=== PATIENT | female | born 1960 | race Caucasian/White ===

== ENCOUNTER 2017-06-03 09:26 | Emergency (ER) | payer BC ==
[2017-06-03 09:42] VITALS: BP 98/56
--- NOTE | 2017-06-03 10:00 | UC ---
Lower Extremity/Ankle HPI - HPI Summary HPI Summary: Patient presents with complaints of several day foot pain, which became worse yesterday. she states pain of the top of foot that radiates to the sides of the ankle. She states the pain is constant, but worse with walking. she describes it as aching pain. Denies any injury, trauma, or new activity that would explain the pain. - History of Current Complaint Chief Complaint: UCLowerExtremity Stated Complaint: RIGHT FOOT PAIN Time Seen by Provider: 06/03/17 09:28 Hx Obtained From: Patient ?: No Onset/Duration: Gradual Onset, Lasting Days Severity Initially: Moderate Severity Currently: Moderate Aggravating Factor(s): Ambulation Alleviating Factor(s): Rest, Elevation, Ice Able to Bear Weight: Yes - Risk Factors Gout Risk Factors: Negative DVT Risk Factors: Negative Septic Arthritis Risk Factor: Negative - Allergies/Home Medications Allergies/Adverse Reactions: Allergies Allergy/AdvReac Type Severity Reaction Status Date / Time No Known Allergies Allergy Verified 06/03/17 09:42 PMH/Surg Hx/FS Hx/Imm Hx Previously Healthy: Yes - Surgical History Surgical History: Yes Surgery Procedure, Year, and Place: 70% STOMACH REMOVED 03/2015, TONSILLECTOMY, NECK SURGERY A CHILD - Family History Known Family History: Positive: None - Social History Occupation: Employed Full-time Lives: Alone Alcohol Use: Rare Alcohol Amount: 1 GLASS/WEEK Substance Use Type: Marijuana Substance Use Comment - Amount & Last Used: occassional Smoking Status (MU): Never Smoked Tobacco - Immunization History Most Recent Influenza Vaccination: Not UTD Review of Systems Constitutional: Negative Skin: Negative Eyes: Negative ENT: Negative Respiratory: Negative Cardiovascular: Negative Gastrointestinal: Negative Genitourinary: Negative Motor: Negative Neurovascular: Negative Musculoskeletal: Arthralgia, Decreased ROM, Myalgia Neurological: Negative Psychological: Negative All Other Systems Reviewed And Are Negative: Yes Physical Exam Triage Information Reviewed: Yes Appearance: Well-Appearing Vital Signs: Initial Vital Signs Temp 97.0 F 06/03/17 09:32 Pulse 78 06/03/17 09:32 Resp 16 06/03/17 09:32 BP 98/56 06/03/17 09:32 Pulse Ox 99 06/03/17 09:32 Eye Exam: Normal ENT Exam: Normal Dental Exam: Normal Neck exam: Normal Neck: Positive: 1 Respiratory Exam: Normal Cardiovascular Exam: Normal Abdominal Exam: Normal Musculoskeletal: Positive: Other: - foot inspection; no areas of eccymosis, edema, or erythma. Palpation; tenderness to palpation of dorsum of foot. ROM: full dorsiflexion,plantar flexion. Vasc; no edema, PP+. Neuro; no deficits. Neurological Exam: Normal Psychological Exam: Normal Skin Exam: Normal Lower Extremity Course/Dx - Course Course Of Treatment: Patient presents with nontraumatic foot pain. Xrays were negative. Post-op shoe provided. NSAIDS recommended. F/U with orthopedists w/i 2 days. Suspect tendonitis. Dischaged instable condition. - Differential Dx/Diagnosis Differential Diagnosis/HQI/PQRI: Tendonitis Provider Diagnoses: foot pain. tendonitis Discharge - Discharge Plan Condition: Stable Disposition: HOME Patient Education Materials: Tendinitis (ED) Referrals: Wade Scott MD [Primary Care Provider] - Mario Gaines MD [Medical Doctor] -
--- NOTE | 2017-06-03 10:19 | RAD ---
HISTORY: Right foot pain COMPARISONS: None VIEWS: 3, Frontal, lateral, and oblique views of the right foot FINDINGS: BONE DENSITY: Normal. BONES: There is no displaced fracture. JOINTS: There is no arthropathy. ALIGNMENT: There is no dislocation. SOFT TISSUES: Unremarkable. OTHER FINDINGS: None. IMPRESSION: NO ACUTE OSSEOUS INJURY. IF SYMPTOMS PERSIST, RECOMMEND REPEAT IMAGING.
== END 2017-06-03 10:28 | disposition home or self-care (01) ==
LOC: UCEAST 09:26
DX: M79.671 Pain in right foot (principal); M65.871 Other synovitis and tenosynovitis, right ankle and foot
CPT/HCPCS: 99213; G0463

== ENCOUNTER 2017-07-22 07:40 | Emergency (ER) | payer BC ==
[2017-07-22 07:51] VITALS: BP 112/45
[2017-07-22] MEDS ORDERED: Albuterol/Ipratropium NEB.SOL* Albuterol 2.5 MG/Ipratropium 0.5 MG 3 ML INH ONE (08:03)
--- NOTE | 2017-07-22 08:13 | UC ---
Issa Tran Angela, scribed for Ruchi Dillon MD on 07/22/17 at 0803 . General HPI - HPI Summary HPI Summary: This pt is a 57 y/o female presenting to [facility] c/o non-productive cough for 1 month. Pt reports that for the past 2 weeks of this month she had a head cold. States started to feel better. Last week on 07/17, pt had a fever. She states she "slept it out" and breaks the fever. On 07/18 pt still had a cough but went to [place] by bus for Thanksgiving. Pt came back yesterday to [place]. This morning pt with post-tussive emesis and vomited. Pt has been taking Robitussin DM, Dayquil, Nyquil. She notes that Dayquil has worked better for her. She denies any fevers since 07/17. No rash, diarrhea, sinus pressure. Pt notes she is constipated and currently has a headache. She has not had the flu shot yet. No analgesia, cough medication taken today. No sob. No wheeze. no h/o lung disease. Patients medication reviewed this visit. - History of Current Complaint Chief Complaint: UCRespiratory Stated Complaint: COUGH HEADACHE Time Seen by Provider: 07/22/17 07:55 Hx Obtained From: Patient Onset/Duration: Lasting Weeks, Still Present Timing: Constant Alleviating: Dayquil Associated Signs & Symptoms: Positive: Cough, Fever - once, now resolved, Headache, Vomiting - once today, Other - POS: constipation. NEG: rash, sinus pressure. Negative: Diarrhea - Allergy/Home Medications Allergies/Adverse Reactions: Allergies Allergy/AdvReac Type Severity Reaction Status Date / Time No Known Allergies Allergy Verified 07/22/17 07:47 PMH/Surg Hx/FS Hx/Imm Hx Previously Healthy: Yes Other Endocrine History: DENIES: diabetes Respiratory History: Bronchitis - once before Psychological History: Depression - Surgical History Surgical History: Yes Surgery Procedure, Year, and Place: 70% STOMACH REMOVED 03/2015, TONSILLECTOMY, NECK SURGERY A CHILD - Family History Known Family History: Positive: Other - Aunt: breast CA. 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 [employer] Alcohol Use: Rare Alcohol Amount: 1 GLASS/WEEK Substance Use Type: Marijuana Substance Use Comment - Amount & Last Used: occassional Smoking Status (MU): Never Smoked Tobacco - Immunization History Most Recent Influenza Vaccination: Not UTD Review of Systems Constitutional: Fever - once, now resolved Skin: Negative Eyes: Negative ENT: Negative Respiratory: Cough Cardiovascular: Negative Gastrointestinal: Other - post tussive emesis x 1 today Genitourinary: Negative Motor: Negative Neurovascular: Negative Musculoskeletal: Negative Neurological: Headache Psychological: Negative All Other Systems Reviewed And Are Negative: Yes Physical Exam Triage Information Reviewed: Yes Completion Of Physical Exam Limited Due To: Altered Mental Status Appearance: Well-Appearing, No Pain Distress, Well-Nourished Vital Signs: Initial Vital Signs Temp 98 F 07/22/17 07:48 Pulse 87 07/22/17 07:48 Resp 20 07/22/17 07:48 BP 112/45 07/22/17 07:48 Pulse Ox 100 07/22/17 07:48 Vital Signs Reviewed: Yes Eye Exam: Normal Eyes: Positive: Conjunctiva Clear ENT Exam: Normal ENT: Positive: Hearing grossly normal, Pharyngeal erythema, Nasal congestion, TMs normal, Uvula midline. Negative: Sinus tenderness Dental Exam: Normal Neck exam: Normal Neck: Positive: Supple, Nontender, No Lymphadenopathy Respiratory Exam: Normal Respiratory: Positive: Chest non-tender, Lungs clear, Normal breath sounds, No respiratory distress, Wheezing, Other: - coarse cough scattered wheeze no retraction Cardiovascular Exam: Normal Cardiovascular: Positive: RRR, No Murmur, Pulses Normal Abdominal Exam: Normal Abdomen Description: Positive: Nontender, No Organomegaly, Soft Bowel Sounds: Positive: Present Musculoskeletal Exam: Normal Musculoskeletal: Positive: Strength Intact Neurological Exam: Normal Neurological: Positive: Alert Psychological Exam: Normal Psychological: Positive: Normal Response To Family Skin Exam: Normal Diagnostics - Radiology Chest XR Xray Interpretation: Positive (See Comments) - IMPRESSION: left upper lobe infiltrate most consistent with pneumonia, recommend follow-up chest x-rays to resolution. ED physician has reviewed this radiology report and agrees. Radiology Interpretation Completed By: Radiologist Re-Evaluation - Re-Evaluation First Eval Comment: reviewed CXR. abx. MDI. school note. secretion precaution Course/Dx - Course Course Of Treatment: Pt with persistent cough. Pt with post tussive emesis x 1 today. fever - resolved. Pt with few scattered wheeze, no rhonci. Will check cxr. duo neb. reassess - Differential Dx - Multi-Symptom Provider Diagnoses: pneumonia Discharge - Discharge Plan Condition: Stable Disposition: HOME Prescriptions: Albuterol HFA INHALER* [Ventolin HFA Inhaler*] 1 puff INH Q4H PRN #1 mdi PRN Reason: wheeze Amoxicillin/Clavulanate TAB* [Augmentin TAB 875*] 875 mg PO BID #20 tab Benzonatate CAP* [Tessalon 100 MG CAP*] 100 mg PO TID PRN #20 cap PRN Reason: Cough Hydrocodone Polistirex-Chlorph [Tussionex Pennkinetic Ext 10-8 mg/5Ml] 1 carlos PO Q6HR PRN #100 carlos MDD 20 PRN Reason: Cough Hydrocodone Polistirex-Chlorph [Tussionex Pennkinetic Ext 10-8 mg/5Ml] 1 carlos PO BID PRN #115 carlos MDD 10 PRN Reason: Cough Patient Education Materials: Community Acquired Pneumonia (ED) Forms: *Gen. Provider Communication, *Work Release Referrals: Wade Scott MD [Primary Care Provider] - Additional Instructions: - Stay well hydrated. Drink plenty of non-alcoholic, non-caffinated beverages. - After you have been on antibiotics for 2 days - change your toothbrush and your pillowcase. These infections are spread by secretions - do NOT share eating or drinking utensils - clean items you share with other people such as cell phones, computer mouse, TV remote, computer tablets, etc - Alternate ibuprofen (Advil, Motrin) 600mg and Tylenol every 3 hours for pain or fever. Take with food. Do NOT take for more than 4-5 days. -Use inhaler 2 puffs every 4 hours today, then every 4 hours as needed - Okay to take Cough medication as prescribed. Do NOT drive, operate machinery or drink alcohol while taking Tussionex - Contact your doctor or return with questions or concerns. The documentation as recorded by the Issa castro Angela accurately reflects the service I personally performed and the decisions made by , Ruchi Dillon MD.
--- NOTE | 2017-07-22 08:43 | RAD ---
INDICATION: Persistent cough. COMPARISON: Comparison is made with a prior CT of the chest from November 22, 2016. TECHNIQUE: Dual-energy PA and lateral views of the chest were obtained. FINDINGS: The heart is within normal limits in size. Mediastinal and hilar contours appear within normal limits. There is a focal infiltrate present toward the left lung base in the left upper lobe most consistent with pneumonia. No pleural effusion is seen. IMPRESSION: LEFT UPPER LOBE INFILTRATE MOST CONSISTENT WITH PNEUMONIA, RECOMMEND FOLLOW-UP CHEST X-RAYS TO RESOLUTION.
== END 2017-07-22 09:15 | disposition home or self-care (01) ==
LOC: UCEAST 07:40
DX: J18.9 Pneumonia, unspecified organism (principal); R05 Cough; F12.90 Cannabis use, unspecified, uncomplicated
CPT/HCPCS: 71020; 99212; G0463